=== PATIENT | male | born 1945 | race Caucasian/White ===

== ENCOUNTER 2019-12-22 11:55 | Emergency (ER) | payer OTHER, MEDICARE, SELFPAY ==
[~2019-12-22] VITALS: Ht 175.3 cm; Wt 95.3 kg
--- NOTE | 2019-12-22 12:15 | NUR ---
Patient to ER bed 8 to gown for evaluation. Side rails up.
--- NOTE | 2019-12-22 12:15 | NUR ---
Pt came to ER after having a positive COVID test 12/13 pt resting in gurney, AO4, VSS, O2 WNL, pt shows no obvious signs of distress.
[2019-12-22 12:23] VITALS: BP_SYST 141
--- NOTE | 2019-12-22 12:25 | NUR ---
ER at bedside examining patient.
--- NOTE | 2019-12-22 13:00 | NUR ---
Pt resting in [facility] at this time no distress, VSS
[2019-12-22] MEDS ORDERED: NACL 0.9% 1,000 ML IV ONE (13:45)
[2019-12-22 14:11] LABS: BASOPHILS % (AUTO) 0.5 % (0.0-2.0); EOSINOPHILS % (AUTO) 0.1 % (0.0-4.0); HEMATOCRIT 39.2 % (36-54); HEMOGLOBIN 13.5 g/dL (14.0-18.0); LYMPHOCYTES # (AUTO) 0.8 K/uL (1.0-5.5); LYMPHOCYTES % (AUTO) 14.4 % (20.5-51.5); MEAN CORPUSCULAR HEMOGLOBIN 31 pg (27-31); MEAN CORPUSCULAR HGB CONC 34 % (32-36); MEAN CORPUSCULAR VOLUME 89 fL (79.0-98.0); MONOCYTES # (AUTO) 0.5 K/uL (0.0-1.0); MONOCYTES % (AUTO) 8.9 % (1.7-9.3); NEUTROPHILS # (AUTO) 4.5 K/uL (1.8-7.7); NEUTROPHILS % (AUTO) 76.1 % (40.0-70.0); PLATELET COUNT (AUTO) 205 K/uL (130-430); RED BLOOD CELL COUNT(AUTO) 4.38 MIL/uL (4.2-6.2); RED CELL DISTRIBUTION WIDTH 13.7 % (9.0-15.0); WHITE BLOOD COUNT (AUTO) 5.9 K/uL (4.8-10.8)
[2019-12-22 14:25] LABS: ANION GAP 9 (5-15); C-REACTIVE PROTEIN QUANT 6.3 mg/dL (0-0.5); CHLORIDE 98 mmol/L (98-107); CREATININE 0.88 mg/dL (0.55-1.30); GLUCOSE 121 mg/dL (70-99); POTASSIUM 3.5 mmol/L (3.5-5.1); SODIUM SERUM 135 mmol/L (136-145); UREA NITROGEN, BLOOD 18 mg/dL (8-21)
[2019-12-22 14:42] LABS: ALANINE AMINOTRANSFERASE 38 U/L (12-78); ALBUMIN 3.3 g/dL (3.4-4.8); ASPARTATE AMINOTRANSFERASE 35 U/L (10-37); LACTATE DEHYDROGENASE 173 U/L (85-227); TOTAL BILIRUBIN 0.4 mg/dL (0.0-1.0)
[2019-12-22 15:00] LABS: FIBRINOGEN 675 mg/dL (200-400)
--- NOTE | 2019-12-22 15:01 | NUR ---
Pt O2 sat stable, no distress noted
[2019-12-22 16:37] VITALS: BP_SYST 135
== END 2019-12-22 16:38 | disposition home or self-care (01) ==
LOC: SED 11:55
DX: U07.1 COVID-19 (principal); I10 Essential (primary) hypertension
CPT/HCPCS: 36415; 36600; 71045; 80053; 82550; 82728; 82803; 83605; 83615; 83880; 84484; 85025; 85379; 85384; 86140; 96360; 99284; J7030